=== PATIENT | female | born 1995 | race Hispanic/Latino ===

== ENCOUNTER 2016-09-11 22:47 | Emergency (ER) | payer SELFPAY ==
[2016-09-11 23:03] VITALS: TEMP 98.6
--- NOTE | 2016-09-11 23:06 | ED.PDOC ---
History of Present Illness - General Chief Complaint: Problem Stated Complaint: urinary frequency Time Seen by Provider: 09/11/16 23:00 Source: patient Exam Limitations: no limitations - History of Present Illness Initial Comments: PT HAS MULTIPLE C/O'S. INITIALLY STARTED 1 WEEK AGO WITH URINARY SX'S. NOW HAS DEVELOPED PECK, GENERAL MALAISE, COUGH, CHEST PAIN Severity: moderate Improving Factors: nothing Worsening Factors: nothing Associated Symptoms: cough Allergies/Adverse Reactions: Allergies NO KNOWN ALLERGY Allergy (Verified 09/11/16 23:03) Home Medications: Ambulatory Orders Ciprofloxacin [Cipro] 500 mg PO BID #20 ml 09/12/16 Dicyclomine HCl [Bentyl] 20 mg PO Q6HR PRN #20 tab 09/12/16 metroNIDAZOLE [Flagyl] 500 mg PO TID #42 tab 09/12/16 Review of Systems - Review of Systems Constitutional: Denies: chills, fever EENTM: States: no symptoms reported Respiratory: States: cough, other - PROD SMALL AMOUNT OF GREEN SPUTUM. Denies: short of breath Cardiology: Denies: chest pain, edema, syncope Gastrointestinal/Abdominal: Denies: abdominal pain, nausea, vomiting Genitourinary: States: dysuria, frequency. Denies: hematuria Musculoskeletal: States: other - GENERAL MALAISE. Denies: joint pain Skin: Denies: change in color, rash Neurological: States: no symptoms reported Endocrine: States: no symptoms reported Past Medical History (General) - Patient Medical History Hx Asthma: Yes Hx Diabetes: No Surgical History: no surgical history - Vaccination History Hx Tetanus, Diphtheria Vaccination: No Hx Influenza Vaccination: No Hx Pneumococcal Vaccination: No - Social History Hx Tobacco Use: Yes Hx Alcohol Use: No - Female History Patient is a Female of Child Bearing Age (10 -59 yrs old): Yes Patient : No Family Medical History - Family History Mother Family History: No Known Living Status: Still Living Father Family History: No Known Living Status: Still Living Physical Exam - Physical Exam General Appearance: Alert, Comfortable, No apparent distress, Obese Eye Exam: bilateral normal Ears, Nose, Throat: hearing grossly normal, normal ENT inspection, normal pharynx Neck: non-tender, full range of motion, supple Respiratory: lungs clear, no respiratory distress Cardiovascular/Chest: regular rate, rhythm, no murmur Gastrointestinal/Abdominal: non tender, soft, no organomegaly Back Exam: normal inspection, CVA tenderness (R) - MILD Extremity: normal range of motion, normal inspection Neurologic: alert, normal mood/affect Departure - Departure Clinical Impression: Diverticulitis large intestine Qualifiers: Diverticulitis bleeding: without bleeding Diverticulitis complication: without perforation or abscess Qualifier Code: (K57.32) Diverticulitis of large intestine without perforation or abscess without bleeding Time of Disposition: 00:37 Disposition: Discharge to Home or Self Care Condition: Good Departure Forms: ED Discharge - Pt. Copy, Patient Portal Self Enrollment Instructions: Diverticulitis Diet: full liquid diet Prescriptions: Dicyclomine HCl [Bentyl] 20 mg PO Q6HR PRN #20 tab PRN Reason: Abdominal Cramping Ciprofloxacin [Cipro] 500 mg PO BID #20 ml metroNIDAZOLE [Flagyl] 500 mg PO TID #42 tab Home Medications: Ambulatory Orders Ciprofloxacin [Cipro] 500 mg PO BID #20 ml 09/12/16 Dicyclomine HCl [Bentyl] 20 mg PO Q6HR PRN #20 tab 09/12/16 metroNIDAZOLE [Flagyl] 500 mg PO TID #42 tab 09/12/16
[2016-09-11] MEDS ORDERED: KETOROLAC TROMETHAMINE INJ 30 MG/ML VIAL IV ONE (23:27)
--- NOTE | 2016-09-12 00:18 | CT ---
PROCEDURE: Abdoment/Pelvis w/o Contrast HISTORY: ABDOMINAL/FLANK PAIN, MILD HEMATURIA, R/O STONE Indication: Same as above Comparison: None Technique: CT of the abdomen and pelvis was done without intravenous contrast. Images were obtained from the lung base to the level of the pubic symphysis in axial plane, followed by orthogonal sagittal and coronal reconstruction. Oral contrast was not given for the study. This exam was performed according to our departmental dose-optimization program, which includes automated exposure control, adjustment of the mA and/or KV according to the patient's size and/or use of iterative reconstruction technique. FINDINGS: Images through the lung bases do not show any focal infiltrates or pleural effusions. There is large bowel diverticulosis with stranding of the fat planes adjacent to the diverticula in the hepatic flexure of the proximal large bowel in the right upper quadrant of the abdomen suspicious for mild acute diverticulitis The liver, gallbladder, pancreas, spleen and the bilateral adrenal glands appear unremarkable, given the limitation of lack of intravenous contrast. The bilateral kidneys do not show any evidence of hydronephrosis or nephrolithiasis. The bilateral ureters and the bilateral periureteral soft tissues and fat planes are unremarkable. The urinary bladder is unremarkable, without any evidence of wall thickening, calculi or filling defects. The small bowel appears unremarkable, without any evidence of small bowel obstruction or bowel wall thickening. There is no CT evidence of acute appendicitis, pericecal inflammatory change or ileocecal mesenteric adenitis. The ileocecal junction appears unremarkable. There is no pathological lymphadenopathy in the retroperitoneum or in the pelvic region. There is no evidence of free fluid or free air in the abdomen or the pelvic region. There is no clinically significant abdominal aortic aneurysm. There is no clinically significant inguinal or ventral hernia. The visualized lumbar spine is unremarkable. The paravertebral soft tissues are unremarkable. The remainder of the pelvic structures are unremarkable. IMPRESSION: There is large bowel diverticulosis with stranding of the fat planes adjacent to the diverticula in the hepatic flexure of the proximal large bowel in the right upper quadrant of the abdomen suspicious for mild acute diverticulitis. There is no nephrolithiasis or hydroureteronephrosis Electronically signed by: Rick Gee MD 09/12/2016 12:18 AM CDT
[2016-09-12 00:55] VITALS: BP 112/68; O2SAT 97
== END 2016-09-12 00:55 | disposition home or self-care (01) ==
LOC: ER 22:47
DX: K57.32 Diverticulitis of large intestine without perforation or abscess without bleeding (principal); J45.909 Unspecified asthma, uncomplicated; Z87.891 Personal history of nicotine dependence
CPT/HCPCS: 74176; 80048; 81001; 81025; 85025; J1885

== ENCOUNTER 2016-10-19 12:17 | Emergency (ER) | payer SELFPAY ==
[2016-10-19 12:28] VITALS: BP 106/63; TEMP 97; O2SAT 95
--- NOTE | 2016-10-19 13:13 | RAD ---
EXAM DESCRIPTION: Chest,2 Views CLINICAL HISTORY: 20 years,Female,pain bw shoulder blades when lifting COMPARISON: January 12, 2010 FINDINGS: There are no consolidations. No effusions. No pneumothoraces. No nodules. Bony elements unremarkable for age. IMPRESSION: Unremarkable chest for age stable Electronically signed by: Nestor Rosa MD 10/19/2016 1:12 PM CDT
--- NOTE | 2016-10-19 13:20 | ED.PDOC ---
History of Present Illness - General Chief Complaint: Back Pain or Injury Stated Complaint: hurt back at work Time Seen by Provider: 10/19/16 12:19 Source: patient Exam Limitations: no limitations - History of Present Illness Initial Comments: The patient is a 20-year-old female presenting to emergency room secondary to acute onset of upper back pain that occurred while she was lifting something at work. Pain is primarily to the left side of the spine. It is in between the shoulder blades. It is consistent with a rhomboid strain clinically. She is neurovascularly intact. No pain over the spinous processes. No step-off. No obvious trauma.no other injury. Timing/Duration: 1-3 hours Severity: moderate Improving Factors: immobilization Worsening Factors: movement Associated Symptoms: denies symptoms Allergies/Adverse Reactions: Allergies NO KNOWN ALLERGY Allergy (Verified 10/19/16 12:23) Home Medications: Ambulatory Orders Cyclobenzaprine HCl [Flexeril] 5 mg PO TID PRN #30 tab 10/19/16 Review of Systems - Review of Systems Constitutional: States: no symptoms reported EENTM: States: no symptoms reported Respiratory: States: no symptoms reported Cardiology: States: no symptoms reported Gastrointestinal/Abdominal: States: no symptoms reported Genitourinary: States: no symptoms reported Musculoskeletal: States: see HPI Skin: States: no symptoms reported Neurological: States: no symptoms reported All other Systems: No Change from Baseline Past Medical History (General) - Patient Medical History Hx Stroke: No Hx Asthma: Yes Hx Congestive Heart Failure: No Hx Diabetes: No Hx MRSA: No Surgical History: no surgical history - Vaccination History Hx Tetanus, Diphtheria Vaccination: No Hx Influenza Vaccination: No Hx Pneumococcal Vaccination: No - Social History Hx Tobacco Use: Yes Hx Alcohol Use: No - Female History Patient is a Female of Child Bearing Age (10 -59 yrs old): Yes Patient : No Family Medical History - Family History Mother Family History: No Known Living Status: Still Living Father Family History: No Known Living Status: Still Living Physical Exam - Physical Exam General Appearance: Alert, No apparent distress Eye Exam: bilateral normal Ears, Nose, Throat: normal ENT inspection, normal pharynx Neck: full range of motion, supple, normal inspection Respiratory: chest non-tender, lungs clear, normal breath sounds, no respiratory distress, no accessory muscle use Cardiovascular/Chest: normal peripheral pulses, regular rate, rhythm, no edema Peripheral Pulses: radial,right: 2+, radial,left: 2+ Gastrointestinal/Abdominal: normal bowel sounds, non tender, soft Rectal Exam: deferred Back Exam: no vertebral tenderness, other - see history of present illness Extremity: normal range of motion, non-tender, normal inspection, no pedal edema , no calf tenderness, normal capillary refill 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 She does need to stretch out the muscle. She can use a heat pad or topical heat to reduce irritation. 2 Aleve with food can be taken twice daily to help reduce inflammation. She is also being written for a short prescription of Flexeril as a mild muscle relaxer to event muscle spasm. She needs to increase her fluid intake. Lifting limited for the next week is 10 pounds for the left arm. ER warnings were given. She needs to follow up with her primary care doctor early next week. - Results/Orders Results/Orders: two-view chest x-ray shows no significant infiltrates and no obvious bony abnormalities of the thoracic spine. Departure - Departure Clinical Impression: Rhomboid muscle strain Qualifiers: Encounter type: initial encounter Qualified Code(s): S29.012A - Strain of muscle and tendon of back wall of thorax, initial encounter Disposition: Discharge to Home or Self Care Condition: Fair Departure Forms: ED Discharge - Pt. Copy, Patient Portal Self Enrollment Instructions: DI for Muscle Strain Diet: regular diet Prescriptions: Cyclobenzaprine HCl [Flexeril] 5 mg PO TID PRN #30 tab PRN Reason: Muscle Spasms Home Medications: Ambulatory Orders Cyclobenzaprine HCl [Flexeril] 5 mg PO TID PRN #30 tab 10/19/16 Additional Instructions: the patient is a 20-year-old female presented to emergency room due to the acute onset of upper left back pain that is clinically consistent with a left rhomboid strain. She does need to stretch out the muscle. She can use a heat pad or topical heat to reduce irritation. 2 Aleve with food can be taken twice daily to help reduce inflammation. She is also being written for a short prescription of Flexeril as a mild muscle relaxer to prevent muscle spasm. She needs to increase her fluid intake. Lifting limit for the next week is 10 pounds for the left arm. ER warnings were given. She needs to follow up with her primary care doctor early next week.
== END 2016-10-19 13:25 | disposition home or self-care (01) ==
LOC: ER 12:17
DX: S29.012A Strain of muscle and tendon of back wall of thorax, initial encounter (principal); J45.909 Unspecified asthma, uncomplicated; Z87.891 Personal history of nicotine dependence; X50.9XXA Other and unspecified overexertion or strenuous movements or postures, initial encounter; Y92.9 Unspecified place or not applicable; Y99.0 Civilian activity done for income or pay

== ENCOUNTER 2017-07-11 14:50 | Emergency (ER) | payer SELFPAY ==
--- NOTE | 2017-07-11 15:11 | ED.PDOC ---
History of Present Illness - General Chief Complaint: Problem Stated Complaint: flank pain Time Seen by Provider: 07/11/17 15:10 Source: patient Exam Limitations: no limitations - History of Present Illness Initial Comments: Heidy Napier 21 y/o female seen in er today with reported dull bilateral flank pains for the last 2 weeks intermittent aggravated by turning from side to side.No hematuria,no constipation ,no dysuria,no recent back injuries,no fever,no weight loss. Timing/Duration: intermittent, other - 14 days Severity: moderate Improving Factors: nothing Worsening Factors: movement Associated Symptoms: denies symptoms, other - see hpi Allergies/Adverse Reactions: Allergies NO KNOWN ALLERGY Allergy (Verified 07/11/17 15:25) Home Medications: Ambulatory Orders Baclofen 20 mg PO BID #10 tab 07/11/17 Diclofenac Sodium [Diclofenac Sodium Dr] 75 mg PO BID #14 tab 07/11/17 Review of Systems - Review of Systems Constitutional: States: no symptoms reported EENTM: States: no symptoms reported Respiratory: States: no symptoms reported Cardiology: States: no symptoms reported Gastrointestinal/Abdominal: States: no symptoms reported Genitourinary: States: no symptoms reported Musculoskeletal: States: see HPI Neurological: States: no symptoms reported All other Systems: Reviewed and Negative, No Change from Baseline Past Medical History (General) - Patient Medical History Hx Stroke: No Hx Asthma: Yes Hx Congestive Heart Failure: No Hx Diabetes: No Hx MRSA: No Surgical History: no surgical history - Vaccination History Hx Tetanus, Diphtheria Vaccination: No Hx Influenza Vaccination: No Hx Pneumococcal Vaccination: No - Social History Hx Tobacco Use: Yes Hx Alcohol Use: No - Female History Hx Last Menstrual Period: 07/03/17 Patient : No Family Medical History - Family History Mother Family History: No Known Living Status: Still Living Father Family History: No Known Living Status: Still Living Physical Exam - Physical Exam General Appearance: Alert, Comfortable, No apparent distress Eye Exam: bilateral normal Ears, Nose, Throat: hearing grossly normal, normal ENT inspection Neck: non-tender, full range of motion, supple Respiratory: lungs clear, normal breath sounds, no respiratory distress Cardiovascular/Chest: normal peripheral pulses, regular rate, rhythm, no murmur Peripheral Pulses: radial,right: 2+, radial,left: 2+ Gastrointestinal/Abdominal: normal bowel sounds, non tender, soft, no organomegaly Back Exam: no CVA tenderness, no vertebral tenderness, decreased range of motion - lateral rotation bilaterally, muscle spasm Extremity: normal range of motion, non-tender, no pedal edema, no calf tenderness Progress - Progress Progress: 07/11/17 15:59 Laboratory Tests 07/11/17 07/11/17 07/11/17 15:26 15:29 15:29 WBC 8.4 RBC 4.91 Hgb 14.2 Hct 42.0 MCV 85.5 MCH 28.8 MCHC 33.7 RDW 13.8 Plt Count 244 MPV 8.4 Absolute Neuts (auto) 5.10 Absolute Lymphs (auto) 2.30 Absolute Monos (auto) 0.70 Absolute Eos (auto) 0.30 Absolute Basos (auto) 0.10 Neutrophils % 60.6 Lymphocytes % 26.8 Monocytes % 7.8 Eosinophils % 3.6 Basophils % 1.2 Sodium 137 Potassium 3.5 L Chloride 104 Carbon Dioxide 25 Anion Gap 11.5 L Calcium 9.1 Urine Color Yellow Urine Appearance Clear Urine pH 6.0 Ur Specific [place] 1.025 Urine Protein Negative Urine Glucose (UA) Negative Urine Ketones Negative Urine Blood Moderate H Urine Nitrite Negative Urine Bilirubin Negative Urine Urobilinogen 0.2 Ur Leukocyte Esterase Negative Urine RBC 10-20 H Urine WBC 3-5 H Ur Epithelial Cells 10-20 Urine Bacteria 2+ H Urine Mucus Moderate Urine HCG, Qual 07/11/17 15:29 WBC RBC Hgb Hct MCV MCH MCHC RDW Plt Count MPV Absolute Neuts (auto) Absolute Lymphs (auto) Absolute Monos (auto) Absolute Eos (auto) Absolute Basos (auto) Neutrophils % Lymphocytes % Monocytes % Eosinophils % Basophils % Sodium Potassium Chloride Carbon Dioxide Anion Gap Calcium Urine Color Urine Appearance Urine pH Ur Specific [place] Urine Protein Urine Glucose (UA) Urine Ketones Urine Blood Urine Nitrite Urine Bilirubin Urine Urobilinogen Ur Leukocyte Esterase Urine RBC Urine WBC Ur Epithelial Cells Urine Bacteria Urine Mucus Urine HCG, Qual Negative - Results/Orders Results/Orders: Laboratory Tests 07/11/17 07/11/17 07/11/17 15:26 15:29 15:29 WBC 8.4 RBC 4.91 Hgb 14.2 Hct 42.0 MCV 85.5 MCH 28.8 MCHC 33.7 RDW 13.8 Plt Count 244 MPV 8.4 Absolute Neuts (auto) 5.10 Absolute Lymphs (auto) 2.30 Absolute Monos (auto) 0.70 Absolute Eos (auto) 0.30 Absolute Basos (auto) 0.10 Neutrophils % 60.6 Lymphocytes % 26.8 Monocytes % 7.8 Eosinophils % 3.6 Basophils % 1.2 Sodium 137 Potassium 3.5 L Chloride 104 Carbon Dioxide 25 Anion Gap 11.5 L BUN 7 Creatinine 0.58 L BUN/Creatinine Ratio 12.1 Random Glucose 93 Serum Osmolality 271.5 L Calcium 9.1 Urine Color Yellow Urine Appearance Clear Urine pH 6.0 Ur Specific [place] 1.025 Urine Protein Negative Urine Glucose (UA) Negative Urine Ketones Negative Urine Blood Moderate H Urine Nitrite Negative Urine Bilirubin Negative Urine Urobilinogen 0.2 Ur Leukocyte Esterase Negative Urine RBC 10-20 H Urine WBC 3-5 H Ur Epithelial Cells 10-20 Urine Bacteria 2+ H Urine Mucus Moderate Urine HCG, Qual 07/11/17 15:29 WBC RBC Hgb Hct MCV MCH MCHC RDW Plt Count MPV Absolute Neuts (auto) Absolute Lymphs (auto) Absolute Monos (auto) Absolute Eos (auto) Absolute Basos (auto) Neutrophils % Lymphocytes % Monocytes % Eosinophils % Basophils % Sodium Potassium Chloride Carbon Dioxide Anion Gap BUN Creatinine BUN/Creatinine Ratio Random Glucose Serum Osmolality Calcium Urine Color Urine Appearance Urine pH Ur Specific [place] Urine Protein Urine Glucose (UA) Urine Ketones Urine Blood Urine Nitrite Urine Bilirubin Urine Urobilinogen Ur Leukocyte Esterase Urine RBC Urine WBC Ur Epithelial Cells Urine Bacteria Urine Mucus Urine HCG, Qual Negative - EKG/XRAY/CT CT Ordered: Yes - abd/p no acute abnormalities Departure - Departure Clinical Impression: Bilateral flank pain Hematuria Qualifiers: Hematuria type: other microscopic Qualified Code(s): R31.29 - Other microscopic hematuria; R31.2 - Other microscopic hematuria Time of Disposition: 17:25 Disposition: Discharge to Home or Self Care Condition: Good Departure Forms: ED Discharge - Pt. Copy, Patient Portal Self Enrollment Instructions: Low Back Pain, DI for Low Back Pain, Back Pain (Alternative Therapy), Activity May Be Better then Rest for Low Back Pain Recovery Prescriptions: Baclofen 20 mg PO BID #10 tab Diclofenac Sodium [Diclofenac Sodium Dr] 75 mg PO BID #14 tab Home Medications: Ambulatory Orders Baclofen 20 mg PO BID #10 tab 07/11/17 Diclofenac Sodium [Diclofenac Sodium Dr] 75 mg PO BID #14 tab 07/11/17 Additional Instructions: Follow up with primary Md 07/15/2017
[2017-07-11] MEDS ORDERED: LACTATED RINGERS 1,000 ML IVS ONE (15:12)
[2017-07-11 16:51] VITALS: O2SAT 96
--- NOTE | 2017-07-11 17:14 | CT ---
PROCEDURE: Abdoment/Pelvis w/o Contrast HISTORY: flank pain/hematuria Indication: Same as above Comparison: None Technique: CT of the abdomen and pelvis was done without intravenous contrast. Images were obtained from the lung base to the level of the pubic symphysis in axial plane, followed by orthogonal sagittal and coronal reconstruction. Oral contrast was not given for the study. This exam was performed according to our departmental dose-optimization program, which includes automated exposure control, adjustment of the mA and/or KV according to the patient's size and/or use of iterative reconstruction technique. Total DLP: mGy*cm. FINDINGS: Images through the lung bases do not show any focal infiltrates or pleural effusions. The liver, gallbladder, pancreas, spleen and the bilateral adrenal glands appear unremarkable, given the limitation of lack of intravenous contrast. The bilateral kidneys do not show any evidence of hydronephrosis or nephrolithiasis. The bilateral ureters and the bilateral periureteral soft tissues and fat planes are unremarkable. The urinary bladder is unremarkable, without any evidence of wall thickening, calculi or filling defects. The small bowel appears unremarkable, without any evidence of small bowel obstruction or bowel wall thickening. There is no CT evidence of acute appendicitis, pericecal inflammatory change or ileocecal mesenteric adenitis. The ileocecal junction appears unremarkable. There is no CT evidence of acute colonic diverticulitis or colitis or large bowel obstruction. There is presence of large bowel diverticulosis There is no pathological lymphadenopathy in the retroperitoneum or in the pelvic region. There is no evidence of free fluid or free air in the abdomen or the pelvic region. There is no clinically significant abdominal aortic aneurysm. Benign lesion follicular cysts are seen bilaterally, not requiring any imaging follow-up There is no clinically significant inguinal or ventral hernia. The uterus is retroflexed The visualized lumbar spine is unremarkable. The paravertebral soft tissues are unremarkable. The remainder of the pelvic structures are unremarkable. IMPRESSION: There is no CT evidence of urinary tract calculi or urinary tract obstruction. Large bowel diverticulosis without acute diverticulitis, an unusual finding at the patient's age Electronically signed by: Rick Gee MD 07/11/2017 5:[address] [facility] Workstation: [id number]
[2017-07-11 17:52] VITALS: BP 110/61; TEMP 97.2
== END 2017-07-11 17:50 | disposition home or self-care (01) ==
LOC: ER 14:50
DX: R10.9 Unspecified abdominal pain (principal); R31.29 Other microscopic hematuria
CPT/HCPCS: 36415; 74176; 80048; 81001; 81025; 85025; J7120

== ENCOUNTER 2018-07-15 20:30 | Emergency (ER) | payer SELFPAY | END 2018-07-15 22:05 | disposition left against medical advice (07) | LOC: ER 20:30 | DX: R51 Headache (principal); Z53.21 Procedure and treatment not carried out due to patient leaving prior to being seen by health care provider ==

== ENCOUNTER 2018-07-16 17:44 | Emergency (ER) | payer SELFPAY ==
--- NOTE | 2018-07-16 18:21 | ED.PDOC ---
History of Present Illness - General Chief Complaint: General Stated Complaint: Flu-like symptoms Time Seen by Provider: 07/16/18 17:49 Source: patient Exam Limitations: no limitations - History of Present Illness Initial Comments: Heidy Napier 22 y/o female had non productive cough,felt nauseated,feeling weak for the last 3 days .Stated dad had been tested positive for flu.Denies chronic medical problem. Timing/Duration: other - see hpi Severity: moderate Improving Factors: nothing Worsening Factors: nothing Associated Symptoms: denies symptoms Allergies/Adverse Reactions: Allergies NO KNOWN ALLERGY Allergy (Verified 07/16/18 17:58) Home Medications: Ambulatory Orders Baclofen 20 mg PO BID #10 tab 07/11/17 Diclofenac Sodium [Diclofenac Sodium Dr] 75 mg PO BID #14 tab 07/11/17 Oseltamivir Capsule [Tamiflu] 75 mg PO BID 5 Days #10 capsule 07/16/18 Review of Systems - Review of Systems Constitutional: States: fever, malaise EENTM: States: see HPI, nose congestion Respiratory: States: see HPI, cough Cardiology: States: no symptoms reported Gastrointestinal/Abdominal: States: no symptoms reported Genitourinary: States: no symptoms reported Musculoskeletal: States: no symptoms reported All other Systems: Reviewed and Negative, No Change from Baseline Past Medical History (General) - Patient Medical History Hx Seizures: No Hx Stroke: No Hx Dementia: No Hx Asthma: Yes Hx of COPD: No Hx Cardiac Disorders: No Hx Congestive Heart Failure: No Hx Pacemaker: No Hx Hypertension: No Hx Thyroid Disease: No Hx Diabetes: No Hx Gastroesophageal Reflux: No Hx Renal Disease: No - kidney stones, and frequent UTIs Hx Cancer: No Hx of HIV: No Hx Hepatitis C: No Hx MRSA: No Surgical History: no surgical history - Vaccination History Hx Tetanus, Diphtheria Vaccination: No Hx Influenza Vaccination: No Hx Pneumococcal Vaccination: No - Social History Hx Tobacco Use: Yes Years Tobacco Use: 5 Cigarettes Packs Per Day: 6 Hx Chewing Tobacco Use: No Hx Alcohol Use: Yes - occasional Hx Substance Use: No Hx Substance Use Treatment: No Hx Depression: No Hx Physical Abuse: No Hx Emotional Abuse: No Hx Suspected Abuse: No - Female History Patient is a Female of Child Bearing Age (10 -59 yrs old): Yes Hx Last Menstrual Period: 07/01/18 Patient : No Family Medical History - Family History Mother Family History: No Known Living Status: Still Living Father Family History: No Known Living Status: Still Living Physical Exam - Physical Exam General Appearance: Alert, Comfortable, No apparent distress Eye Exam: bilateral normal Ears, Nose, Throat: hearing grossly normal, normal ENT inspection, normal pharynx Neck: non-tender, full range of motion, supple, normal inspection Respiratory: lungs clear, normal breath sounds Cardiovascular/Chest: normal peripheral pulses, regular rate, rhythm Peripheral Pulses: radial,right: 2+, radial,left: 2+ Gastrointestinal/Abdominal: normal bowel sounds, non tender, soft Back Exam: no CVA tenderness, no vertebral tenderness Extremity: no pedal edema, no calf tenderness Neurologic: alert, oriented x 3 Progress - Progress Progress: 07/16/18 18:30 Vital Signs - 8 hr 07/16/18 17:48 Temperature 99.2 F Pulse Rate [ 82 Left Radial] Respiratory 18 Rate Blood Pressure 134/78 [Left Arm] O2 Sat by Pulse 97 Oximetry - Results/Orders Results/Orders: POSITIVE FLU A - EKG/XRAY/CT XRAY: chest - no acute abnormalities Departure - Departure Clinical Impression: Influenza with other manifestations Time of Disposition: 19:02 Disposition: Discharge to Home or Self Care Departure Forms: ED Discharge - Pt. Copy, ED Discharge - Work Release, Patient Portal Self Enrollment Instructions: Flu, Adult (DC), Flu Prescriptions: Oseltamivir Capsule [Tamiflu] 75 mg PO BID 5 Days #10 capsule Home Medications: Ambulatory Orders Baclofen 20 mg PO BID #10 tab 07/11/17 Diclofenac Sodium [Diclofenac Sodium Dr] 75 mg PO BID #14 tab 07/11/17 Oseltamivir Capsule [Tamiflu] 75 mg PO BID 5 Days #10 capsule 07/16/18 Additional Instructions: Drink extra fluids,May take over the counter cough /cold medicine;Tylenol 500mg one tablet every 6 hours for pain fever;Nasal saline rinse as needed for nasal congestion;Follow up with primary Md 21 Jul 2018 for re check
[2018-07-16] MEDS: OSELTAMIVIR 75 MG CAP PO ONE (18:27)
[2018-07-16] MEDS: BENZONATATE PERLES 100 MG CAP PO ONE (18:27)
[2018-07-16] MEDS: ACETAMINOPHEN 500 MG TAB PO ONE (18:27)
[2018-07-16] MEDS: ONDANSETRON ODT 8 MG TAB SL ONE (18:27)
--- NOTE | 2018-07-16 18:43 | RAD ---
EXAM DESCRIPTION: Chest,1 View CLINICAL HISTORY: 22 years Female cough COMPARISON: Two-view chest dated 10/19/2016 TECHNIQUE: A single frontal projection of the chest is obtained. FINDINGS: Heart: Allowing for magnification factors related to AP portable technique and large body habitus , the heart is normal in size and configuration .Vasculature: The aorta is unremarkable. The pulmonary vascularity is normal. Mediastinum: Unremarkable otherwise. No evidence of mass or adenopathy. Lungs: There is no focal consolidation in the lungs. Pleural spaces: There are no pleural effusions. There are no pneumothoraces. Osseous structures: There is no evidence of acute fracture, osseous destruction or osteoblastic lesions. Tubes and catheters: None. Upper abdomen: No acute findings. IMPRESSION: No acute cardiopulmonary abnormality. [] Remainder of findings as described above. Electronically signed by: Shawna Mera MD 07/16/2018 6:40 PM [employer]
[2018-07-16] MEDS: ONDANSETRON ODT (ER DISP) 8 MG TAB PO ONE (19:17)
[2018-07-16 19:29] VITALS: BP 117/70; TEMP 98.8; O2SAT 98
== END 2018-07-16 19:30 | disposition home or self-care (01) ==
LOC: ER 17:44
DX: J10.1 Influenza due to other identified influenza virus with other respiratory manifestations (principal); J45.909 Unspecified asthma, uncomplicated; Z87.891 Personal history of nicotine dependence

== ENCOUNTER 2018-10-09 16:43 | Emergency (ER) | payer SELFPAY ==
[2018-10-09 17:16] VITALS: TEMP 98.2
--- NOTE | 2018-10-09 17:43 | ED.PDOC ---
History of Present Illness - General Chief Complaint: Problem Stated Complaint: low back pain, hesitancy, freqency Time Seen by Provider: 10/09/18 17:32 Source: patient Exam Limitations: no limitations - History of Present Illness Initial Comments: Heidy Napier 22 y/o female came to er with urinary hesitancy and urgency for the last 3 days ;no fever or flank pains.No chronic medical problems.Denies flank pains. Timing/Duration: other - 3 days Quality: moderate, intermittent, sharpness Onset Location: suprapubic Radiation: none Activites at Onset: none Sexual intercourse history: not active Improving Factors: nothing Worsening Factors: nothing Associated Symptoms: denies symptoms, other - see hpi Allergies/Adverse Reactions: Allergies NO KNOWN ALLERGY Allergy (Verified 10/09/18 17:17) Home Medications: Ambulatory Orders Nitrofurantoin Monohydrate Mac [Macrobid] 100 mg PO BID 5 Days #10 capsule 10/09/18 Phenazopyridine HCl [Pyridium] 100 mg PO BID 5 Days #10 tab 10/09/18 Review of Systems - Review of Systems Constitutional: States: no symptoms reported EENTM: States: no symptoms reported Respiratory: States: no symptoms reported Cardiology: States: no symptoms reported Gastrointestinal/Abdominal: States: no symptoms reported Musculoskeletal: States: see HPI Skin: States: no symptoms reported Neurological: States: no symptoms reported All other Systems: Reviewed and Negative, No Change from Baseline Past Medical History (General) - Patient Medical History Hx Seizures: No Hx Stroke: No Hx Dementia: No Hx Asthma: Yes Hx of COPD: No Hx Cardiac Disorders: No Hx Congestive Heart Failure: No Hx Pacemaker: No Hx Hypertension: No Hx Thyroid Disease: No Hx Diabetes: No Hx Gastroesophageal Reflux: No Hx Renal Disease: No - kidney stones, and frequent UTIs Hx Cancer: No Hx of HIV: No Hx Hepatitis C: No Hx MRSA: No Surgical History: no surgical history - Vaccination History Hx Tetanus, Diphtheria Vaccination: No Hx Influenza Vaccination: No Hx Pneumococcal Vaccination: No - Social History Hx Tobacco Use: Yes Hx Chewing Tobacco Use: No Hx Alcohol Use: Yes Hx Substance Use: No Hx Substance Use Treatment: No Hx Depression: No Hx Physical Abuse: No Hx Emotional Abuse: No Hx Suspected Abuse: No - Female History Patient is a Female of Child Bearing Age (10 -59 yrs old): No Hx Last Menstrual Period: 07/01/18 Patient : No Family Medical History - Family History Mother Family History: No Known Living Status: Still Living Father Family History: No Known Living Status: Still Living Hx Family Hypertension: Yes Physical Exam - Physical Exam General Appearance: Alert, Comfortable, No apparent distress Eyes, Ears, Nose, Throat Exam: normal ENT inspection Neck: supple, normal inspection Cardiovascular/Respiratory: regular rate, rhythm, no M/R/G, normal peripheral pulses Gastrointestinal/Abdominal: normal bowel sounds, non tender, soft Extremity: no pedal edema, no calf tenderness Neurologic: alert, oriented x 3 Progress - Progress Progress: 10/09/18 17:46 Vital Signs 10/09/18 17:09 Temperature 98.2 F Pulse Rate [L 83 finger] Respiratory 18 Rate Blood Pressure 114/72 [L arm] O2 Sat by Pulse 99 Oximetry - Results/Orders Results/Orders: 10/09/18 19:15 Hyoscyamine Sulfate [Anaspaz] 0.125 mg PO ONCE ONE Nitrofurantoin Monohydrate Mac [Macrobid] 100 mg PO ONCE ONE Phenazopyridine HCl [Pyridium] 200 mg PO ONCE ONE Laboratory Results - last 24 hr 10/09/18 10/09/18 10/09/18 17:45 17:45 17:45 WBC 8.0 RBC 4.73 Hgb 13.8 Hct 41.9 MCV 88.4 MCH 29.2 MCHC 33.0 RDW 13.2 Plt Count 265 MPV 8.5 Absolute Neuts (auto) 4.40 Absolute Lymphs (auto) 2.60 Absolute Monos (auto) 0.60 Absolute Eos (auto) 0.30 Absolute Basos (auto) 0.10 Neutrophils % 55.1 Lymphocytes % 32.7 Monocytes % 7.8 Eosinophils % 3.4 Basophils % 1.0 Sodium Potassium Chloride Carbon Dioxide Anion Gap BUN Creatinine BUN/Creatinine Ratio Random Glucose Serum Osmolality Calcium Urine Color Yellow Urine Appearance Sl cloudy Urine pH 5.5 Ur Specific [place] >= 1.030 Urine Protein Trace Urine Glucose (UA) Negative Urine Ketones Negative Urine Blood Large H Urine Nitrite Negative Urine Bilirubin Negative Urine Urobilinogen 0.2 Ur Leukocyte Esterase Negative Urine RBC 1-3 Urine WBC 0-1 Ur Epithelial Cells 1-3 Urine Bacteria 0 Urine HCG, Qual Negative 10/09/18 17:45 WBC RBC Hgb Hct MCV MCH MCHC RDW Plt Count MPV Absolute Neuts (auto) Absolute Lymphs (auto) Absolute Monos (auto) Absolute Eos (auto) Absolute Basos (auto) Neutrophils % Lymphocytes % Monocytes % Eosinophils % Basophils % Sodium 138 Potassium 3.5 L Chloride 106 Carbon Dioxide 24 Anion Gap 11.5 L BUN 12 Creatinine 0.60 BUN/Creatinine Ratio 20.0 Random Glucose 75 Serum Osmolality 274.1 L Calcium 8.7 Urine Color Urine Appearance Urine pH Ur Specific [place] Urine Protein Urine Glucose (UA) Urine Ketones Urine Blood Urine Nitrite Urine Bilirubin Urine Urobilinogen Ur Leukocyte Esterase Urine RBC Urine WBC Ur Epithelial Cells Urine Bacteria Urine HCG, Qual Discuss all test with patient and abdominal ct findings - EKG/XRAY/CT CT Ordered: Yes - abd/p-no acute abnormalities Departure - Departure Clinical Impression: Frequency-urgency syndrome Hematuria Qualifiers: Hematuria type: benign essential microscopic Qualified Code(s): R31.1 - Benign essential microscopic hematuria Time of Disposition: 19:20 Disposition: Discharge to Home or Self Care Departure Forms: ED Discharge - Pt. Copy, ED Discharge - Work Release, Patient Portal Self Enrollment Prescriptions: Nitrofurantoin Monohydrate Mac [Macrobid] 100 mg PO BID 5 Days #10 capsule Phenazopyridine HCl [Pyridium] 100 mg PO BID 5 Days #10 tab Home Medications: Ambulatory Orders Nitrofurantoin Monohydrate Mac [Macrobid] 100 mg PO BID 5 Days #10 capsule 10/09/18 Phenazopyridine HCl [Pyridium] 100 mg PO BID 5 Days #10 tab 10/09/18 Additional Instructions: Increase fluid intake;Sign up with primary MD ANGELO [phone] for follow up recheck 13 Oct 2018
[2018-10-09 19:10] VITALS: BP 120/68; O2SAT 99
--- NOTE | 2018-10-09 19:12 | CT ---
EXAM DESCRIPTION: Abdoment/Pelvis w/o Contrast CLINICAL HISTORY: hematuria COMPARISON: None Available TECHNIQUE: Contiguous axial images of the abdomen and pelvis were obtained followed by reconstruction images. This exam was performed according to our departmental dose-optimization program, which includes automated exposure control, adjustment of the mA and/or kV according to patient size and/or use of iterative reconstruction technique. FINDINGS: Increased opacity within the dependent portion of the lungs may represent atelectasis. There is a 2.5 cm cyst within the right adnexa compatible with an ovarian cyst. This is an almost certainly benign finding. As per [facility] best practice protocol, no further follow-up recommended. The liver, spleen, pancreas and kidneys are within normal limits. There is no hydronephrosis or renal stones. The gallbladder is unremarkable by CT criteria. Adrenal glands are within normal limits. Aorta is of normal caliber and tapering. There is no free fluid in the abdomen or pelvis. There is no bowel obstruction. There is no stranding of the mesenteric fat to suggest an inflammatory response. The appendix is within normal limits. There is no pericecal inflammation. IMPRESSION: No acute intra-abdominal abnormality. Electronically signed by: Norm Sherwood MD 10/09/2018 7:10 PM CDT
[2018-10-09] MEDS ORDERED: NITROFURANTOIN MONOHYDRATE MAC 100 MG CAP PO ONE (19:15)
[2018-10-09] MEDS ORDERED: PHENAZOPYRIDINE HCL 200 MG TAB PO ONE (19:15)
[2018-10-09] MEDS ORDERED: HYOSCYAMINE SULFATE 0.125 MG TAB PO ONE (19:15)
== END 2018-10-09 19:30 | disposition home or self-care (01) ==
LOC: ER 16:43
DX: R39.15 Urgency of urination (principal); R35.0 Frequency of micturition; R31.1 Benign essential microscopic hematuria; J45.909 Unspecified asthma, uncomplicated; Z87.442 Personal history of urinary calculi; Z87.440 Personal history of urinary (tract) infections

== ENCOUNTER 2019-06-15 11:53 | Emergency (ER) | payer OTHER ==
[2019-06-15] MEDS ORDERED: CIPROFLOXACIN 500 MG TAB PO ONE (13:08)
[2019-06-15] MEDS ORDERED: LIDOCAINE 1% 10 ML VIAL INJ ONE (13:12)
--- NOTE | 2019-06-15 13:15 | ED.PDOC ---
History of Present Illness - General Chief Complaint: Upper Extremity Injury Stated Complaint: INGROWN FINGER NAIL RIGHT MIDDLE FINGER Time Seen by Provider: 06/15/19 13:08 Source: patient - History of Present Illness Initial Comments: 23 yo female who presents with cc of right ringer finger pain and redness. Onset about 1 week ago with worsening in past 24 hours. Reports primary location to distal medial tip of right ringer finger adjacent to the fingernail, constant, pressure-like pain, 2/10 severity, worse with palpation, denies any drainage, nothing tried for relief. Reports hx of similar issue in the past and had to have drainage for relief. Reports hx of ingrown fingernails. Denies fevers, chills, weakness, numbness. Allergies/Adverse Reactions: Allergies NO KNOWN ALLERGY Allergy (Verified 06/15/19 12:42) Home Medications: Ambulatory Orders Nitrofurantoin Monohydrate Mac [Macrobid] 100 mg PO BID 5 Days #10 capsule 10/09/18 Phenazopyridine HCl [Pyridium] 100 mg PO BID 5 Days #10 tab 10/09/18 Ciprofloxacin HCl [Cipro] 500 mg PO BID 7 Days #14 tab 06/15/19 Review of Systems - Review of Systems Review of Systems: 06/15/19 13:14 as per HPI All other Systems: Reviewed and Negative Past Medical History (General) - Patient Medical History Hx Seizures: No Hx Stroke: No Hx Dementia: No Hx Asthma: Yes Hx of COPD: No Hx Cardiac Disorders: No Hx Congestive Heart Failure: No Hx Pacemaker: No Hx Hypertension: No Hx Thyroid Disease: No Hx Diabetes: No Hx Gastroesophageal Reflux: No Hx Renal Disease: No - kidney stones, and frequent UTIs Hx Cancer: No Hx of HIV: No Hx Hepatitis C: No Hx MRSA: No - Vaccination History Hx Tetanus, Diphtheria Vaccination: No Hx Influenza Vaccination: No Hx Pneumococcal Vaccination: No - Social History Hx Tobacco Use: Yes Hx Chewing Tobacco Use: No Hx Alcohol Use: Yes Hx Substance Use: No Hx Substance Use Treatment: No Hx Depression: No Hx Physical Abuse: No Hx Emotional Abuse: No Hx Suspected Abuse: No - Female History Patient is a Female of Child Bearing Age (10 -59 yrs old): Yes Hx Last Menstrual Period: 07/01/18 Patient : No Family Medical History - Family History Mother Family History: No Known Living Status: Still Living Father Family History: No Known Living Status: Still Living Hx Family Hypertension: Yes Physical Exam - Physical Exam General Appearance: Alert, Comfortable, No apparent distress Eyes, Ears, Nose, Throat Exam: PERRL/EOMI, normal ENT inspection, pharynx normal Neck: non-tender, full range of motion, supple Cardiovascular/Respiratory: regular rate, rhythm, no M/R/G, normal peripheral pulses, normal breath sounds, no respiratory distress Abdominal Exam: non-tender, no organomegaly Back Exam: normal inspection Shoulder Exam: normal inspection Elbow/Forearm Exam: normal inspection Wrist Exam: normal inspection Hand Exam: soft tissue tenderness, swelling - To right distal 4th digit there is moderate redness and tenderness adjacent to medial aspect of the fingernail with some green discoloration of the skin, no noted ingrown nail, moderate ttp and mild warmth of the area, possible small amount of fluctuance and blanching with pressure noted Neuro/Tendon: normal sensation, normal motor functions, normal tendon functions Mental Status: alert, oriented x 3 Skin Exam: warm/dry Progress - Progress Progress: 06/15/19 13:16 Acute paronychia, Right 4th digit -will attempt bedside I&D with digital nerve block -will place on oral Abx with Cipro (for pseudomonal coverage) 06/15/19 14:04 -Able to drain a little over 1 cc of bloody purulent fluid at bedside. -Given Rx of Cipro 500 mg BID x7 days, dc home in good condition, return warnings discussed. Discussed home care and soaking digit in water/vinegar mix QID until well healed. Carl Merlos MD Billing #[id number] Procedures - Incision and Drainage #1 Site: right distal 4th digit Procedure and Prep: betadine prep, wound culture collected, pus drained - 1 cc purulent bloody drainage Blade Size: 11 Procedure Comments: Verbal consent obtained. Digital nerve block performed by injecting 5 mL of 1% lidocaine without epi at base of digit with good anesthesia of digit. 11 blade used for small stab incision just medial to the nail with approx 1 cc of bloody purulent fluid drained - culture collected and sent. Pt tolerated procedure well. There were no complications. Estimated blood loss <1 mL. Departure - Departure Clinical Impression: Paronychia of finger of right hand Time of Disposition: 14:06 Disposition: Discharge to Home or Self Care Condition: Good Departure Forms: ED Discharge - Pt. Copy, Patient Portal Self Enrollment Instructions: Paronychia (DC) Diet: resume usual diet Prescriptions: Ciprofloxacin HCl [Cipro] 500 mg PO BID 7 Days #14 tab Home Medications: Ambulatory Orders Nitrofurantoin Monohydrate Mac [Macrobid] 100 mg PO BID 5 Days #10 capsule 10/09/18 Phenazopyridine HCl [Pyridium] 100 mg PO BID 5 Days #10 tab 10/09/18 Ciprofloxacin HCl [Cipro] 500 mg PO BID 7 Days #14 tab 06/15/19 Additional Instructions: Soak the finger 3-4 times per day for 15-20 minutes at a time in a mixture of warm water and vinegar until well-healed. Keep the wound covered with a topical OTC antibiotic ointment such as neosporin and a clean dressing. Return if the redness and swelling worsens despite treatment or other concerning symptoms. Avoid biting your fingernail and always trim your nails square to avoid ingrown fingernails. Follow up with your primary care doctor in 1-2 weeks for repeat evaluation or sooner as needed.
[2019-06-15] MEDS ORDERED: TETANUS,DIPHTHERIA,PERTUSSIS 1 EA SYG IM ONE (14:01)
[2019-06-15 14:30] VITALS: BP 145/89; TEMP 98.1; O2SAT 99
== END 2019-06-15 14:29 | disposition home or self-care (01) ==
LOC: ER 11:53
DX: L03.011 Cellulitis of right finger (principal); J45.909 Unspecified asthma, uncomplicated; Z23 Encounter for immunization; Z87.891 Personal history of nicotine dependence

== ENCOUNTER 2019-12-15 19:01 | Emergency (ER) | payer OTHER ==
--- NOTE | 2019-12-15 22:47 | ED.PDOC ---
History of Present Illness - General Chief Complaint: General Stated Complaint: body aches, fever Time Seen by Provider: 12/15/19 21:20 Source: patient Exam Limitations: no limitations - History of Present Illness Initial Comments: 2D MYALGIA, COUGH. Severity: moderate Improving Factors: nothing Worsening Factors: nothing Associated Symptoms: cough Allergies/Adverse Reactions: Allergies NO KNOWN ALLERGY Allergy (Verified 06/15/19 12:42) Home Medications: Ambulatory Orders Amoxicillin 875 mg PO BID #14 tab 12/15/19 Review of Systems - Review of Systems Constitutional: Denies: chills, fever EENTM: Denies: ear pain, nose congestion Respiratory: States: cough. Denies: short of breath Cardiology: Denies: chest pain, palpitations Gastrointestinal/Abdominal: Denies: abdominal pain, nausea Genitourinary: States: no symptoms reported Musculoskeletal: States: muscle pain. Denies: back pain, joint pain, neck pain Skin: States: no symptoms reported Neurological: States: no symptoms reported Endocrine: States: no symptoms reported Hematologic/Lymphatic: States: no symptoms reported All other Systems: Reviewed and Negative Past Medical History (General) - Patient Medical History Hx Seizures: No Hx Stroke: No Hx Dementia: No Hx Asthma: Yes Hx of COPD: No Hx Cardiac Disorders: No Hx Congestive Heart Failure: No Hx Pacemaker: No Hx Hypertension: No Hx Thyroid Disease: No Hx Diabetes: No Hx Gastroesophageal Reflux: No Hx Renal Disease: No - kidney stones, and frequent UTIs Hx Cancer: No Hx of HIV: No Hx Hepatitis C: No Hx MRSA: No Surgical History: no surgical history - Vaccination History Hx Tetanus, Diphtheria Vaccination: No Hx Influenza Vaccination: No Hx Pneumococcal Vaccination: No Immunizations Up to Date: No - Social History Hx Tobacco Use: Yes Hx Chewing Tobacco Use: No Hx Alcohol Use: Yes Hx Substance Use: No Hx Substance Use Treatment: No Hx Depression: No Hx Physical Abuse: No Hx Emotional Abuse: No Hx Suspected Abuse: No - Female History Hx Last Menstrual Period: 07/01/18 Patient : No Family Medical History - Family History Mother Family History: No Known Living Status: Still Living Hx Family Hypertension: Yes Father Family History: No Known Living Status: Still Living Hx Family Hypertension: Yes Physical Exam - Physical Exam General Appearance: Alert, No apparent distress Eye Exam: bilateral normal Ears, Nose, Throat: hearing grossly normal, pharyngeal erythema, tonsillar swelling Neck: non-tender, full range of motion, supple, normal inspection Respiratory: lungs clear, normal breath sounds, no respiratory distress Cardiovascular/Chest: normal peripheral pulses, regular rate, rhythm, no murmur Peripheral Pulses: radial,right: 2+, radial,left: 2+ Gastrointestinal/Abdominal: non tender, soft Extremity: normal range of motion, normal inspection Neurologic: alert, normal mood/affect Skin Exam: normal color, warm/dry Lymphatic: no adenopathy Progress - Results/Orders Results/Orders: STREP POS. AMOXIL IN ER AND RX'D. FLU NEG. COVID PENDING. OFF WORK AND SELF QUARANTINE UNTIL COVID RESULTS COME BACK IN 5-7 D. Departure - Departure Clinical Impression: Strep throat, Cough, Myalgia Disposition: Discharge to Home or Self Care Condition: Good Departure Forms: ED Discharge - Pt. Copy, Patient Portal Self Enrollment Instructions: Sore Throat, Adult (DC) Diet: full liquid diet Activity: increase activity as tolerated Prescriptions: Amoxicillin 875 mg PO BID #14 tab Home Medications: Ambulatory Orders Amoxicillin 875 mg PO BID #14 tab 12/15/19 Additional Instructions: You have Strep throat, which requires antibiotics. Please stay off work and self-quarantine for 5-7 days until the COVID test results come back, to ensure you do not also have COVID.
[2019-12-15] MEDS ORDERED: AMOXICILLIN TRIHYDRATE 875 MG TAB PO ONE (22:49)
[2019-12-15] MEDS ORDERED: AMOXICILLIN & POT CLAVULANATE 875 MG TAB PO ONE (22:53)
[2019-12-15 23:01] VITALS: BP 105/68; TEMP 97.8; O2SAT 97
== END 2019-12-15 23:00 | disposition home or self-care (01) ==
LOC: ER 19:01
DX: J02.0 Streptococcal pharyngitis (principal); M79.10 Myalgia, unspecified site; R05 Cough; Z20.828 Contact with and (suspected) exposure to other viral communicable diseases; R50.9 Fever, unspecified; F17.200 Nicotine dependence, unspecified, uncomplicated

== ENCOUNTER 2020-01-20 06:53 | Emergency (ER) | payer OTHER ==
--- NOTE | 2020-01-20 07:06 | ED.PDOC ---
History of Present Illness - General Chief Complaint: Problem Time Seen by Provider: 01/20/20 06:59 Source: patient, RN notes reviewed, Vital Signs reviewed - History of Present Illness Initial Comments: 24 y/o female with 1.5 weeks of L sided back, frequency and pain with urinating. Clear vag d/c. LMP 2 wks ago. No f/c, n/v/d. She has a hx of kidney stone. Timing/Duration: week Quality: moderate, steady Onset Location: right flank Radiation: other - abdomen Activites at Onset: none Prior abdominal problems: none Improving Factors: nothing Worsening Factors: nothing Associated Symptoms: abdominal pain, dysuria, urinary frequency Allergies/Adverse Reactions: Allergies NO KNOWN ALLERGY Allergy (Verified 01/20/20 07:10) Home Medications: Ambulatory Orders Acetaminophen W/ Codeine [Tylenol W/ CODEINE #3] 1 ea PO Q6HR PRN 7 Days #20 01/20/20 Ibuprofen 600 mg PO Q6HRS PRN #20 tab 01/20/20 Review of Systems - Review of Systems Constitutional: States: no symptoms reported EENTM: States: no symptoms reported Respiratory: States: no symptoms reported Cardiology: States: no symptoms reported Gastrointestinal/Abdominal: States: abdominal pain Genitourinary: States: discharge - clear, dysuria, frequency Musculoskeletal: States: back pain Skin: States: no symptoms reported Neurological: States: no symptoms reported Hematologic/Lymphatic: States: no symptoms reported Past Medical History (General) - Patient Medical History Hx Seizures: No Hx Stroke: No Hx Dementia: No Hx Asthma: Yes Hx of COPD: No Hx Cardiac Disorders: No Hx Congestive Heart Failure: No Hx Pacemaker: No Hx Hypertension: No Hx Thyroid Disease: No Hx Diabetes: No Hx Gastroesophageal Reflux: No Hx Renal Disease: No - kidney stones, and frequent UTIs Hx Cancer: No Hx of HIV: No Hx Hepatitis C: No Hx MRSA: No - Vaccination History Hx Tetanus, Diphtheria Vaccination: No Hx Influenza Vaccination: No Hx Pneumococcal Vaccination: No - Social History Hx Tobacco Use: Yes Hx Chewing Tobacco Use: No Hx Alcohol Use: Yes Hx Substance Use: No Hx Substance Use Treatment: No Hx Depression: No Hx Physical Abuse: No Hx Emotional Abuse: No Hx Suspected Abuse: No - Female History Hx Last Menstrual Period: 07/01/18 Patient : No Family Medical History - Family History Mother Family History: No Known Living Status: Still Living Hx Family Hypertension: Yes Father Family History: No Known Living Status: Still Living Hx Family Hypertension: Yes Physical Exam - Physical Exam General Appearance: Alert, No apparent distress Eyes, Ears, Nose, Throat Exam: PERRL/EOMI, normal ENT inspection Neck: non-tender, full range of motion, supple, normal inspection Cardiovascular/Respiratory: regular rate, rhythm, no M/R/G, normal breath sounds, no respiratory distress Gastrointestinal/Abdominal: normal bowel sounds, non tender, soft, no organomegaly, no pulsatile mass Back Exam: CVA tenderness (R) Extremity: normal range of motion - gait normal, other Neurologic: no motor/sensory deficits, alert, normal mood/affect, oriented x 3 Skin Exam: normal color, warm/dry Progress - Progress Progress: 01/20/20 09:30 Pain isn't gone but is better. She also states that her back pain increases with movement so possibly musculoskeletal cause. I will cover for both - EKG/XRAY/CT CT: No hydronephrosis or kidney stone seen on CT. She may have passsed a stone Departure - Departure Clinical Impression: History of kidney stones Back pain Qualifiers: Back pain location: back pain in other location Chronicity: acute Qualified Code(s): M54.9 - Dorsalgia, unspecified Hematuria Qualifiers: Hematuria type: other microscopic Qualified Code(s): R31.29 - Other microscopic hematuria Disposition: Discharge to Home or Self Care Departure Forms: ED Discharge - Pt. Copy, Patient Portal Self Enrollment Prescriptions: Ibuprofen 600 mg PO Q6HRS PRN #20 tab PRN Reason: Pain -- Moderate To Severe Acetaminophen W/ Codeine [Tylenol W/ CODEINE #3] 1 ea PO Q6HR PRN 7 Days #20 PRN Reason: Moderate To Severe Pain Home Medications: Ambulatory Orders Acetaminophen W/ Codeine [Tylenol W/ CODEINE #3] 1 ea PO Q6HR PRN 7 Days #20 01/20/20 Ibuprofen 600 mg PO Q6HRS PRN #20 tab 01/20/20
[2020-01-20 07:09] VITALS: TEMP 97.7
[2020-01-20] MEDS ORDERED: KETOROLAC TROMETHAMINE INJ 60 MG/2 ML VIAL IM ONE (07:40)
--- NOTE | 2020-01-20 08:56 | CT ---
EXAM DESCRIPTION: Abdomen/Pelvis w/o Contrast CLINICAL HISTORY: R FLANK PAIN AND HEMATURIA COMPARISON: None. TECHNIQUE: CT of the abdomen and pelvis was performed without contrast. Multiple axial images and multiplanar reconstructions were generated. This exam was performed according to our departmental dose-optimization program, which includes automated exposure control, adjustment of the mA and/or kV according to patient size and/or use of iterative reconstruction technique. FINDINGS: Lung bases: Very mild groundglass opacity in the midportion of the lower lobes, favored to represent atelectasis. These are not significantly changed. Solid organs: Mild hepatic steatosis. No hydronephrosis, hydroureter, or nephrolithiasis. The gallbladder, spleen, pancreas, kidneys, and adrenal glands are unremarkable on this noncontrast exam. Gastrointestinal: Colonic diverticulosis without CT evidence for diverticulitis. The stomach and small intestine are unremarkable. The appendix is normal. No free fluid or free air. Vascular: Normal caliber of the abdominal aorta on this noncontrast exam. Lymph nodes: No pathologically enlarged lymph nodes are present by CT size criteria. Musculoskeletal and soft tissues: No destructive osseous lesions are present. Urinary bladder and pelvic organs: The urinary bladder is normal. The uterus and adnexal structures are unremarkable. IMPRESSION: 1. No obstructive uropathy. 2. Very mild groundglass opacities in the dependent portions of the lung bases, favored to represent atelectasis. Atypical infection is less likely but may have a similar appearance. 3. Hepatic steatosis. 4. Colonic diverticulosis. Electronically signed by: Nawaf Ayala MD 01/20/2020 8:54 AM CDT
[2020-01-20 09:08] VITALS: O2SAT 98
[2020-01-20 09:53] VITALS: BP 104/63
== END 2020-01-20 09:50 | disposition home or self-care (01) ==
LOC: ER 06:53
DX: M54.9 Dorsalgia, unspecified (principal); R31.29 Other microscopic hematuria; R30.0 Dysuria; R35.0 Frequency of micturition; R10.9 Unspecified abdominal pain; J45.909 Unspecified asthma, uncomplicated; Z87.442 Personal history of urinary calculi; Z87.440 Personal history of urinary (tract) infections; Z87.891 Personal history of nicotine dependence

== ENCOUNTER 2020-07-14 06:55 | Emergency (ER) | payer OTHER ==
[2020-07-14] MEDS ORDERED: SODIUM CHLORIDE 0.9% (FLUSH) 10 ML SYG IV PRN (07:22)
[2020-07-14] MEDS ORDERED: IPRATROPIUM/ALBUTEROL 3 ML VIAL NEB ONE (07:23)
[2020-07-14] MEDS ORDERED: ALBUTEROL SULFATE 2.5 MG/3 ML VIAL NEB ONE (07:23)
--- NOTE | 2020-07-14 07:42 | ED.PDOC ---
History of Present Illness - General Chief Complaint: Respiratory Problem Stated Complaint: cough,congestion,chest pain Time Seen by Provider: 07/14/20 07:22 Source: patient, RN notes reviewed, Vital Signs reviewed Exam Limitations: no limitations - History of Present Illness Initial Comments: Patient is a morbidly obese white female who presents with complaints of chest pain. This is been ongoing and constant for the last 4 days. Her chest pain started after the onset of a productive cough. The cough is productive for thick dark sputum. The production of sputum is intermittent. The chest pain is stabbing in nature. It is worse with deep inspiration or cough. It is moderate in severity. There is no radiation of the pain. Patient was diagnosed with Covid over a month ago. Patient made a complete recovery after her diagnosis. She has had no symptoms for the last 3 weeks. Patient states that with this cough she has had no fever. She states that her chest feels tight. Her albuterol nebulizer helps. Timing/Duration: getting worse Severity: moderate Improving Factors: medication - albuterol nebulizer Worsening Factors: movement Associated Symptoms: chest pain, cough, shortness of breath Allergies/Adverse Reactions: Allergies NO KNOWN ALLERGY Allergy (Verified 07/14/20 07:18) Home Medications: Ambulatory Orders Guaifenesin-Codeine [Guaifenesin AC 100-10 mg/5Ml] 10 ml PO Q6H PRN 5 Days #120 ml 07/14/20 Methylprednisolone [Medrol Dose Emre] 4 mg PO DAILY 6 Days #21 tab 07/14/20 Review of Systems - Review of Systems Constitutional: States: no symptoms reported, see HPI EENTM: States: no symptoms reported. Denies: eye pain, double vision, ear pain Respiratory: States: see HPI, cough, short of breath Cardiology: States: see HPI, chest pain. Denies: palpitations, syncope Gastrointestinal/Abdominal: States: no symptoms reported. Denies: abdominal pain, constipation, diarrhea, nausea, vomiting Genitourinary: States: no symptoms reported. Denies: dysuria, frequency Musculoskeletal: States: no symptoms reported. Denies: back pain, joint pain, joint swelling, neck pain Skin: States: no symptoms reported. Denies: change in color, change in hair/nails, rash Neurological: States: no symptoms reported. Denies: headache, tingling, tremors, weakness Endocrine: States: no symptoms reported. Denies: increased hunger, increased thirst, increased urine Hematologic/Lymphatic: States: no symptoms reported. Denies: blood clots, easy bleeding All other Systems: Reviewed and Negative Past Medical History (General) - Patient Medical History Hx Seizures: No Hx Stroke: No Hx Dementia: No Hx Asthma: Yes Hx of COPD: No Hx Cardiac Disorders: No Hx Congestive Heart Failure: No Hx Pacemaker: No Hx Hypertension: No Hx Thyroid Disease: No Hx Diabetes: No Hx Gastroesophageal Reflux: No Hx Renal Disease: No - kidney stones, and frequent UTIs Hx Cancer: No Hx of HIV: No Hx Hepatitis C: No Hx MRSA: No Surgical History: no surgical history - Vaccination History Hx Tetanus, Diphtheria Vaccination: No Hx Influenza Vaccination: No Hx Pneumococcal Vaccination: No - Social History Hx Tobacco Use: Yes Hx Chewing Tobacco Use: No Hx Alcohol Use: Yes Hx Substance Use: No Hx Substance Use Treatment: No Hx Depression: No Hx Physical Abuse: No Hx Emotional Abuse: No Hx Suspected Abuse: No - Female History Hx Last Menstrual Period: 07/01/18 Patient : No Family Medical History - Family History Mother Family History: No Known Living Status: Still Living Hx Family Hypertension: Yes Father Family History: No Known Living Status: Still Living Hx Family Hypertension: Yes Physical Exam - Physical Exam General Appearance: Alert, Anxious, Well Developed, Well Hydrated, Well Nourished Eye Exam: bilateral normal Ears, Nose, Throat: hearing grossly normal, normal ENT inspection, normal pharynx Neck: non-tender, full range of motion, supple Respiratory: lungs clear, no accessory muscle use, decreased breath sounds Cardiovascular/Chest: normal peripheral pulses, no edema, no gallop, no JVD, no murmur, bradycardia Peripheral Pulses: radial,right: 2+, radial,left: 2+ Gastrointestinal/Abdominal: normal bowel sounds, non tender, soft, other - obese Back Exam: normal inspection, no CVA tenderness, no vertebral tenderness Extremity: normal range of motion, non-tender, normal inspection Neurologic: research subject II-XII nml as tested, no motor/sensory deficits, alert Skin Exam: normal color, warm/dry Lymphatic: no adenopathy Progress - Progress Progress: Differential diagnosis: Pneumonia, influenza, bronchitis, viral URI among others. 07/14/20 09:04 Patient presents with complaints of chest pain and cough. EKG is normal. Unlikely to be cardiac in nature. Pain is worse with deep inspiration and movement. Suspect this is more costochondral in nature. Productive cough consistent with bronchitis rather than a lobar pneumonia. Chest x-ray does not show pneumonia. BNP is normal therefore unlikely to be a cardiomyopathy or CHF. I suspect this is a straight bronchial infection and will discharge the patient home on steroids and cough medicine. Of discussed this plan of care with the patient and she voices understanding and agreement. Joesph Turner M.D. #[id number] - Results/Orders Results/Orders: Study: Frontal and Lateral Radiographs of the Chest. Indication: chest pain with cough Comparison: July 16, 2018 Impression: Heart size normal. Lungs clear. No acute osseous abnormality. Electronically signed by: Emery Mejia MD 07/14/2020 8:12 AM [employer] EKG performed 14 July 2020 at 0710 hrs.: Sinus bradycardia with marked sinus arrhythmia at 53 bpm, normal axis deviation, no ST or T wave changes concerning for ischemia, otherwise normal EKG. 07/14/20 07:15 EKG STAT 07/14/20 07:22 IV Care:Saline Lock per Protoc QSHIFT Telemetry ONCE Sodium Chloride 0.9% (Flush) [Saline Flush Syringe] 3 ml IV PRN PRN Pulse Oximetry Assessment DAILY 07/14/20 07:30 EKG STAT 07/14/20 09:00 Pulse Ox Daily Laboratory Results - last 24 hr 07/14/20 07/14/20 07/14/20 07:31 07:31 07:31 WBC 12.0 H RBC 4.67 Hgb 13.4 Hct 40.6 MCV 86.9 MCH 28.8 MCHC 33.1 RDW 13.4 Plt Count 288 MPV 7.9 Absolute Neuts (auto) 7.30 H Absolute Lymphs (auto) 3.20 Absolute Monos (auto) 0.90 H Absolute Eos (auto) 0.50 H Absolute Basos (auto) 0.10 Neutrophils % 60.4 Lymphocytes % 26.6 Monocytes % 7.8 Eosinophils % 4.3 Basophils % 0.9 Sodium 140 Potassium 3.8 Chloride 107 Carbon Dioxide 25 Anion Gap 11.8 L BUN 13 Creatinine 0.64 BUN/Creatinine Ratio 20.3 H Random Glucose 84 Serum Osmolality 278.7 Calcium 9.0 Total Bilirubin 0.6 AST 16 ALT 20 Alkaline Phosphatase 49 B-Natriuretic Peptide < 15.0 Serum Total Protein 7.0 Albumin 3.9 Globulin 3.1 Albumin/Globulin Ratio 1.3 Serum HCG, Qual Beta HCG, Quant Cancelled 07/14/20 07:31 WBC RBC Hgb Hct MCV MCH MCHC RDW Plt Count MPV Absolute Neuts (auto) Absolute Lymphs (auto) Absolute Monos (auto) Absolute Eos (auto) Absolute Basos (auto) Neutrophils % Lymphocytes % Monocytes % Eosinophils % Basophils % Sodium Potassium Chloride Carbon Dioxide Anion Gap BUN Creatinine BUN/Creatinine Ratio Random Glucose Serum Osmolality Calcium Total Bilirubin AST ALT Alkaline Phosphatase B-Natriuretic Peptide Serum Total Protein Albumin Globulin Albumin/Globulin Ratio Serum HCG, Qual Negative Beta HCG, Quant Vital Signs 07/14/20 07/14/20 07/14/20 07:02 07:10 07:50 Temperature 97.6 F Pulse Rate 62 Pulse Rate [ 66 Left Radial] Respiratory 18 18 18 Rate Blood Pressure 114/59 [Left Arm] O2 Sat by Pulse 96 96 Oximetry - EKG/XRAY/CT CT Ordered: No CT Interpretation Call Back: No Departure - Departure Clinical Impression: Viral upper respiratory tract infection with cough, Costochondral chest pain Time of Disposition: 09:10 Disposition: Discharge to Home or Self Care Condition: Good Departure Forms: ED Discharge - Pt. Copy, Patient Portal Self Enrollment Instructions: Costochondritis (DC), Viral Upper Respiratory Infection, Adult (DC) Diet: resume usual diet Activity: increase activity as tolerated Prescriptions: Guaifenesin-Codeine [Guaifenesin AC 100-10 mg/5Ml] 10 ml PO Q6H PRN 5 Days #120 ml PRN Reason: Cough Methylprednisolone [Medrol Dose Emre] 4 mg PO DAILY 6 Days #21 tab Home Medications: Ambulatory Orders Guaifenesin-Codeine [Guaifenesin AC 100-10 mg/5Ml] 10 ml PO Q6H PRN 5 Days #120 ml 07/14/20 Methylprednisolone [Medrol Dose Emre] 4 mg PO DAILY 6 Days #21 tab 07/14/20
--- NOTE | 2020-07-14 08:13 | RAD ---
Study: Frontal and Lateral Radiographs of the Chest. Indication: chest pain with cough Comparison: July 16, 2018 Impression: Heart size normal. Lungs clear. No acute osseous abnormality. Electronically signed by: Emery Mejia MD 07/14/2020 8:12 AM [facility]
[2020-07-14 10:08] VITALS: TEMP 98; O2SAT 97
[2020-07-14 10:14] VITALS: BP 112/66
== END 2020-07-14 10:05 | disposition home or self-care (01) ==
LOC: ER 06:55
DX: J06.9 Acute upper respiratory infection, unspecified (principal); R07.89 Other chest pain; R00.1 Bradycardia, unspecified; J45.909 Unspecified asthma, uncomplicated; E66.01 Morbid (severe) obesity due to excess calories; Z86.16 Personal history of COVID-19; Z87.891 Personal history of nicotine dependence; Z68.41 Body mass index [BMI] 40.0-44.9, adult
CPT/HCPCS: 36415; 71046; 80053; 83880; 84703; 85025; 93005; 94640; J7611; J7620